=== PATIENT | male | born 1995 | race Caucasian/White ===

== ENCOUNTER 2025-02-06 00:47 | Emergency (ER) | payer MEDICAID ==
[~2025-02-06] VITALS: Ht 167.6 cm; Wt 75.8 kg
[2025-02-06 01:11] VITALS: TEMP 36.7; O2SAT 98
[2025-02-06 01:41] VITALS: TEMP 98.1
[2025-02-06] MEDS: ACETAMINOPHEN 325MG TABLET PO ONE (01:41)
[2025-02-06] MEDS: TETANUS, DIPHTHERIA, PERTUSSIS VAC/PF 0.5ML (>10YR OLD) IM ONE (01:42)
[2025-02-06 01:46] VITALS: BP 127/79; PULSE 80; RESP 16; O2SAT 100
[2025-02-06] MEDS: LIDOCAINE HCL 1% 20ML VIAL INL ONE (03:36)
[2025-02-06] MEDS: BACITRACIN ZINC OINT UDPKT TOP ONE (03:37)
[2025-02-06] MEDS ORDERED: SULF1TAB48 MT (04:09)
[2025-02-06] MEDS ORDERED: BO1 TP (04:09)
[2025-02-06] MEDS ORDERED: CEPH500C2 MT (04:09)
== END 2025-02-06 04:25 | disposition home or self-care (01) ==
LOC: ER 00:47
DX: S60.352A Superficial foreign body of left thumb, initial encounter (principal); Z79.899 Other long term (current) drug therapy; W26.8XXA Contact with other sharp object(s), not elsewhere classified, initial encounter; Y93.89 Activity, other specified; Y92.89 Other specified places as the place of occurrence of the external cause; Y99.8 Other external cause status
CPT/HCPCS: 73120; 73130; 90715; 90471; 99284; J2003; Z7610